=== PATIENT | male | born 1980 | race Caucasian/White ===

== ENCOUNTER 2020-05-11 14:42 | Emergency (ER) | payer MEDICAID ==
[~2020-05-11] VITALS: Ht 177.8 cm; Wt 73.9 kg
[2020-05-11 14:55] VITALS: Ht 177.8 cm; Wt 73.9 kg
[2020-05-11 17:32] VITALS: BP 117/73
== END 2020-05-11 17:32 | disposition home or self-care (01) ==
LOC: ED 14:42
DX: I10 Essential (primary) hypertension (principal); F10.10 Alcohol abuse, uncomplicated; Z88.5 Allergy status to narcotic agent
CPT/HCPCS: 82962